=== PATIENT | male | born 1965 | race Caucasian/White ===

== ENCOUNTER → 2017-09-24 14:39 | Outpatient (CLI) | payer OTHER, SELFPAY ==
--- NOTE | 2017-09-24 | DI.CT.S_ITS ---
PROCEDURE: CT LUMBAR SPINE WO CON INDICATIONS: SPONDYLOLISTHESIS OF LUMBAR REGION TECHNIQUE: Noncontrast 3 mm thick sections acquired from the T12 level to the sacrum. Sagittal and coronal reformats were constructed. For radiation dose reduction, the following was used: automated exposure control. COMPARISON: [facility], CR, L-SPINE 2-3 VIEWS, 01/30/2017, 9:56. [facility], MR, L-SPINE WITHOUT CONTRAST, 03/19/2017, 18:40. FINDINGS: Image quality: Excellent. Bones: There is trace retrolisthesis of L4 on L5, Grade I/II anterolisthesis of L5 on S1. Subchrondral sclerosis is present at L5-S1. Bilateral pars defects are present at L5. No acute vertebral body compression fractures. No suspicious lytic or blastic bony lesions. There is severe disc space narrowing at L5-S1, moderate L2-3, L4-5. Inferior endplate deformity is present at T12, unchanged. Conus ends at T12-L1. L1-L2: No disc bulge, spinal stenosis or foraminal narrowing. L2-L3: Mild disc bulge with left lateral component. Mild right and moderate left foraminal narrowing, slightly progressive. Facet and ligamentum hypertrophy is present. L3-L4: Mild disc bulge with minimal spinal stenosis. Mild to moderate bilateral foraminal narrowing. Minimal interval progression with facet hypertrophy. L4-L5: Mild disc bulge with minimal spinal stenosis. Mild to moderate left and moderate right foraminal narrowing with facet and ligamentum flavum hypertrophy. No interval change. L5-S1: Mild disc bulge without spinal stenosis. There is severe bilateral foraminal narrowing, right greater than left with flattening of the nerve roots particularly within the subarticular recesses, right greater than left. Facet and ligamentum flavum hypertrophy are present. Soft tissues: No retroperitoneal masses or hematomas. Visualized aorta is normal in caliber. IMPRESSION: 1. Stable appearance of Grade I/II anterolisthesis of L5 on S1 with L5 pars defects. 2. Multilevel disc bulges. 3. Multilevel foraminal narrowing, severe at L5-S1 predominantly secondary to anterolisthesis. Dictated by: Yvonne Jones M.D. on 09/25/2017 at 10:29 Approved by: Yvonne Jones M.D. on 09/25/2017 at 11:04
== END ==
PROVIDERS: PCP Registered Nurse Diabetes Educator; Visit Provider Neurological Surgery
DX: M43.16 Spondylolisthesis, lumbar region (principal)
CPT/HCPCS: 72131

== ENCOUNTER 2017-10-23 06:09 | Emergency (ER) | payer OTHER, SELFPAY ==
[2017-10-23 06:19] VITALS: BP 139/97; PULSE 83; RESP 16; TEMP 36.3; O2SAT 98; BMI 28.7
--- NOTE | 2017-10-23 06:27 | ED_ITS ---
HPI - Male Genitourinary General Chief complaint: Urogenital-Male Stated complaint: BLOOD IN URINE Time Seen by Provider: 10/23/17 06:10 Source: patient Mode of arrival: ambulatory Limitations: no limitations History of Present Illness HPI Narrative: [age] year old otherwise healthy male who was a smoker here for evaluation of gross blood and clots in his urine this morning. He states that last evening he urinated did not have any problems he states that this morning when he woke up his 1st urine of the day was gross blood and clots. He states that the very end of the urination there was some urine that came out. States he did have some pain when he passed the clots states he does have some lower abdominal discomfort otherwise no other symptoms. No fevers. No trauma. Is circumcised. No history of urinary tract infections. Not on any anticoagulation. No history of kidney stones. Related Data Home Medications Medication Instructions Recorded Confirmed omeprazole 20 mg PO QDAY #0 01/30/17 lisinopril 10 mg PO QDAY #0 02/18/17 Previous Rx's Medication Instructions Recorded ibuprofen 800 mg PO TIDP PRN #90 tab 01/30/17 oxycodone-acetaminophen [Percocet] 1 tab PO Q4HP PRN #15 tab 01/30/17 prednisone 20 mg PO SEE INSTRUCTIONS #15 tab 01/30/17 ketorolac 10 mg PO Q6HP PRN #15 tab 02/18/17 Allergies Allergy/AdvReac Type Severity Reaction Status Date / Time bupropion [From ZYBAN] Allergy Severe ANAPHALAXIS Verified 10/23/17 06:24 Review of Systems Constitutional Denies fever(s) Cardiovascular Denies chest pain and Denies dyspnea Respiratory Denies dyspnea Gastrointestinal Gastrointestinal: Reports abdominal pain (?Slight ?lower abdominal pain), Denies diarrhea, Denies nausea and Denies vomiting Genitourinary Reports hematuria, Denies genital lesions, Denies dysuria and Denies testicular pain Musculoskeletal Denies myalgias and Denies arthralgias Integumentary/Breasts Denies lesions and Denies rash Hematologic/Lymphatic Denies easy bleeding and Denies easy bruising COUNT INCLUDES THE [facility] Medical History Hypertension (Acute) Surgical History No history of previous surgery (Acute) Social History Smoking Status: Current every day smoker Exam Initial Vital Signs Initial Vital Signs: Vital Signs Temperature 97.4 F L 10/23/17 06:19 Pulse Rate 83 18 06:19 Respiratory Rate 16 10/23/17 06:19 Blood Pressure 139/97 H 10/23/17 06:19 Pulse Oximetry 98 10/23/17 06:19 Const General: cooperative, healthy appearing, comfortable, well developed, well groomed and No acute distress Orientation: alert, awake and oriented x3 HENMT Head: normal to inspection and normocephalic Resp Effort & Inspection: normal respiratory effort Cardio Rate: regular rate GI Inspection: non-distended Back/Spine/Pelvis Back: No CVA tenderness Skin Rashes: no rashes Neuro General: alert, awake and oriented x3 Extrem General: normal to inspection Psych Appearance: grossly normal and well kempt Course Orders Ordered: ED Orders 10/23/17 06:28 Urine Microscopic Stat Vital Signs - 8 hr 10/23/17 06:19 Temperature 97.4 F L Pulse Rate 83 Respiratory Rate 16 Blood Pressure 139/97 H Pulse Oximetry 98 MDM - Male Genitourinary Lab Data Attestation: I reviewed the patient's lab results. Lab Results 10/23/17 Range/Units 06:28 Urine RBC 10-30/hpf H (0-5/HPF) Urine WBC None seen (0-5/HPF) Urine Bacteria None seen (None) Ur Culture Indicated? Cult not indicated Micro UA Comment Not Reportable MDM Narrative Medical decision making narrative: Patient asymptomatic here in the emergency department. Is not having any fevers. No history of sexually transmitted diseases. History is not consistent with kidney stone. No signs of infection. He is a smoker which is somewhat concerning for pathology such as bladder cancer however this is the 1st episode of hematuria that the patient has had. Informed him that he needed to increase his fluid intake. He was given return precautions. He was instructed he needs to contact his primary care doctor. He expressed understanding and agreement with plan. Discharge Plan Departure Patient Disposition: Home Clinical Impression: Hematuria Instructions: DI for Hematuria Activity Restrictions/Additional Instructions: Recommend that you increase your fluid intake. Contact your primary care doctor for a follow-up. Return to the emergency department for any new symptoms , worsening symptoms, fevers, inability to urinate, worsening pain, or any other concerning symptoms. Prescriptions: No Action omeprazole 20 MG tablet,delayed release (DR/EC) 20 mg PO QDAY Qty: 0 RF: 0 ibuprofen 800 MG tablet 800 mg PO TIDP PRNQty: 90 RF: 0 prednisone 20 MG tablet 20 mg PO SEE INSTRUCTIONS Qty: 15 RF: 0 oxycodone-acetaminophen [Percocet] 5 MG/325 MG tablet 1 tab PO Q4HP PRNQty: 15 RF: 0 lisinopril 10 MG tablet 10 mg PO QDAY Qty: 0 RF: 0 ketorolac 10 MG tablet 10 mg PO Q6HP PRNQty: 15 RF: 0
[2017-10-23 06:35] LABS: Bacteria Urine None Seen; WBC Urine None Seen (0-5/HPF)
[2017-10-23 06:54] LABS: Culture Indicated Urine Cult Not Indicated; RBC Urine 10-30/HPF (0-5/HPF)
[2017-10-23 07:05] VITALS: BP 138/93; PULSE 84; RESP 16; O2SAT 100
== END 2017-10-23 07:06 | disposition home or self-care (01) ==
PROVIDERS: Emergency Provider Emergency Medicine; PCP Registered Nurse Diabetes Educator
DX: R31.9 Hematuria, unspecified (principal)
CPT/HCPCS: 81003; 81015; 99282

== ENCOUNTER 2018-01-12 13:52 | Outpatient (CLI) | payer OTHER, SELFPAY ==
[2018-01-12] VITALS (8 sets, daily range): BP systolic 123–149; BP diastolic 77–96; PULSE 81–98; RESP 16–22; TEMP 36.4; O2SAT 96–100
--- NOTE | 2018-01-12 13:54 | DI.RAD.S_ITS ---
PROCEDURE: PAIN L INTERLAMINAR/CAUDAL INJ INDICATIONS: RADICULOPATHY FINDINGS: Fluoroscopic spot filming was performed to verify placement of spinal needles at the L5-S1 level(s), as labeled on the films. Appropriate location(s) of the needle tip(s) was confirmed by injection of iodinated contrast. IMPRESSION: Fluoroscopy for pain management. Dictated by: Rhean Ovalle M.D. on 01/12/2018 at 16:50 Approved by: Rehan Ovalle M.D. on 01/12/2018 at 16:50
[2018-01-12] MEDS: MIDAZOLAM 5 MG/5 ML VIAL IV (14:55)
[2018-01-12] MEDS: IOPAMIDOL 15 ML VIAL 3 ML INJ (15:10)
--- NOTE | 2018-01-12 15:10 | PC.NURSE ---
pt tolerated procedure and was able to get off table with minimal assist and into wheelchair. pt taken to pre procedure room for continued monitoring.
[2018-01-12] MEDS: DEXAMETHASONE 10 MG/ML VIAL 20 MG INJ (15:11)
[2018-01-12] MEDS: methylPREDNISolone acetate 80 MG/ML VIAL INJ (15:11)
[2018-01-12] MEDS: BUPIVACAINE 0.25% (PF) VIAL 2 ML INJ (15:11)
--- NOTE | 2018-01-12 15:16 | P.PCN_ITS ---
Procedures Date/Time Date of procedure: 01/12/18 Time of procedure: 15:14 General Procedure description: PROVIDER: Yared Ochoa DO Operative Note PREOP DIAGNOSIS 1. HNP WITH RADICULAR FEATURES, 2. MULTILEVEL CENTRAL STENOSIS, POST OP DIAGNOSIS 1. HNP WITH RADICULAR FEATURES, 2. MULTILEVEL CENTRAL STENOSIS, PROCEDURES 1. FLUORSCOPICALLY GUIDED CONTRAST CONTROLLED INTERLAMINAR EPIDURAL STEROID INJECTION - L5/S1 PHYSICIAN: Yared Ochoa DO INDICATIONS Tera is referred by Dr. Scanlon for treatment of Bilateral Foraminal Stenosis with Right LE symptoms. FINDINGS Multilevel Central Spinal Stenosis with Nerve Root Compression DESCRIPTION OF PROCEDURE Fluoroscopically guided, contrast-controlled L5/S1 translaminar epidural steroid injection. Following denial of allergy and review of potential side effects and complications, including, but not necessarily limited to, infection, allergic reaction, local tissue breakdown, temporary as well as permanent nerve injury, paralysis, stroke and possible , the patient indicated that the patient understood and agreed to proceed. An informed consent document was signed by the patient, witnessed by a nurse, and placed in the patient's chart. Additionally, other treatment options including modalities, medications, and physical therapy were reviewed with the patient. After review of previous anaesthesic history and IV conscious sedation the patient was deemed safe to proceed with todays procedure with IV conscious sedation as ASA class II designation. Safety time-out was performed to confirm patient ID, procedure to be performed and site of procedure. IV sedation was accomplished with a combination of 5mg of Versed administered by the RN after DO order, titrated to patient comfort during the course of the procedure while the patient remained responsive to all verbal commands. In the prone position, following sterile prep and drape of the lumbar region, the L5/S1 translaminar space was identified fluoroscopically. The skin was anesthetized via a 25-gauge, 1.5-inch needle with 1% lidocaine solution. At this point, a 22-gauge short bevel spinal needle was atraumatically introduced and advanced under fluoroscopic guidance into the region of the L5/S1 translaminar space. Depth was confirmed on lateral view. Radiological data, including multiple fluoroscopic views of the lumbar spine, reveal a spinal needle at the L5/S1 translaminar space. Lateral views then show placement of the needle in the epidural space. Subsequent views show contrast material flowing superiorly and inferiorly in the epidural space. No vascular or intrathecal uptake is observed. At this point, using loss of resistance technique with saline and air, the epidural space was entered. This was confirmed following negative aspiration with injection of approximately 1.5 cc of Isovue 200, showing excellent epidural flow without vascular or intrathecal uptake. At this point, 1 cc of 1 % lidocaine solution combined with 3 cc or 20 mg of dexamethasone and 80mg Depo medrol was injected without incident. The patent tolerated the procedure without signs of symptoms of complications prior to transfer to the recovery area for further monitoring. The patient was then transferred to the recovery area where they were observed for an appropriate period of time after the injection. The patient reported a VAS score of 6 prior to the procedure and a post-procedure VAS of 0. Total Fluoroscopy Time: 11.8 seconds Total Conscious Sedation Time: 24min POST OP INSTRUCTIONS The patient was provided a Pain Log to continue to record their response to the target-specific procedure prior to follow-up visit with their referring physician. Additionally, specific post-injection care instructions and a contact number to our office were provided if concerns arise regarding possible complications associated with the procedure are suspected. Yared Ochoa DO Complications: none
--- NOTE | 2018-01-12 15:21 | PC.NURSE ---
1527 ACCEPTED CARE OF PT FROM [facility] FOR POST PROCEDURE OBSERVATION. PT IN STABLE CONDITION.
--- NOTE | 2018-01-12 15:25 | PC.NURSE ---
REVISION TO MY EARLIER NOTE, TOOK OVER PT CARE AT 1517, NOT 1527
== END 2018-01-12 15:41 | disposition home or self-care (01) ==
LOC: RAD 13:53
PROVIDERS: PCP Registered Nurse Diabetes Educator; Visit Provider Physical Medicine & Rehabilitation
DX: M51.17 Intervertebral disc disorders with radiculopathy, lumbosacral region (principal); M48.07 Spinal stenosis, lumbosacral region; M48.061 Spinal stenosis, lumbar region without neurogenic claudication; M43.16 Spondylolisthesis, lumbar region; M47.26 Other spondylosis with radiculopathy, lumbar region
CPT/HCPCS: 62323; 99152; J1040; J1100; J2250

== ENCOUNTER → 2018-06-18 13:30 | Outpatient (CLI) | payer OTHER, SELFPAY ==
[2018-06-18 13:41] LABS: Bacteria Urine None Seen; RBC Urine None Seen (0-5/HPF); WBC Urine None Seen (0-5/HPF)
[2018-06-18 13:55] LABS: Appearance Urine UA CLEAR; Bilirubin Urine UA NEGATIVE (NEGATIVE); Color Urine UA YELLOW; Glucose Urine UA NEGATIVE (Negative); Ketones Urine UA TRACE (NEGATIVE); Leukocyte Esterase Urine UA NEGATIVE (NEGATIVE); Nitrite Urine UA NEGATIVE (Negative); Occult Blood Urine UA TRACE-INTACT (Negative); Protein Urine UA NEGATIVE (Negative); Urobilinogen Urine UA 0.2 E.U./dL (0.2)
[2018-06-18 14:03] LABS: Culture Indicated Urine Cult Not Indicated; Urine Comments Microscopic Normal
== END ==
PROVIDERS: PCP Registered Nurse Diabetes Educator; Visit Provider Urology
DX: R31.0 Gross hematuria (principal)
CPT/HCPCS: 81001

== ENCOUNTER 2018-07-07 13:58 | Outpatient (CLI) | payer OTHER, SELFPAY ==
[2018-07-07] VITALS (10 sets, daily range): BP systolic 113–143; BP diastolic 66–105; PULSE 78–90; RESP 16–18; TEMP 36.4; O2SAT 90–99
--- NOTE | 2018-07-07 13:59 | DI.RAD.S_ITS ---
PROCEDURE: PAIN L/S TRANSFORAMINAL INJECT INDICATIONS: RADICULOPATHY FINDINGS: Fluoroscopic spot filming was performed to verify placement of spinal needles at the L4-L5 level(s), as labeled on the films. Appropriate location(s) of the needle tip(s) was confirmed by injection of iodinated contrast. Dictated by: Keith Glynn M.D. on 07/07/2018 at 16:01 Approved by: Keith Glynn M.D. on 07/07/2018 at 16:02
[2018-07-07] MEDS: MIDAZOLAM 5 MG/5 ML VIAL IV (15:05)
[2018-07-07] MEDS: fentaNYL 100 MCG/2 ML INJ 50 MCG IV (15:10)
[2018-07-07] MEDS: IOPAMIDOL 15 ML VIAL 3 ML INJ (15:14)
[2018-07-07] MEDS: BUPIVACAINE 0.25% (PF) VIAL 2 ML INJ (15:14)
[2018-07-07] MEDS: DEXAMETHASONE 10 MG/ML VIAL 20 MG INJ (15:15)
[2018-07-07] MEDS: BETAMETHASONE 30 MG/5 ML MDV 6 MG INJ (15:16)
--- NOTE | 2018-07-07 15:21 | PC.NURSE ---
pt tolerated procedure well. Able to get off table with standby assist. Transferred pt via wheelchair to pre procedure room for continued monitoring with Evi JALLOH.
--- NOTE | 2018-07-07 15:33 | P.PCN_ITS ---
Procedures Date/Time Date of procedure: 07/07/18 Time of procedure: 15:32 General Procedure description: PREOP DIAGNOSIS 1. FORMAINAL STENOSIS WITH LE SYMPTOMS POST OP DIAGNOSIS 1. FORMAINAL STENOSIS WITH LE SYMPTOMS PROCEDURES 1. FLUOROSCOPICALLY GUIDED CONTRAST CONTROLLED TRANSFORAMINAL EPIDURAL STEROID INJECTION - RIGHT L4/5 TFESI PHYSICIAN: Yared Ochoa DO INDICATIONS: is referred by for treatment of Foraminal Stenosis with Right LE Symptoms FINDINGS Foraminal Nerve Root Compression secondary to disc disease and facet hypertrophy DESCRIPTION OF PROCEDURE: Following denial of allergy and review of potential side effects and complications, including, but not necessarily limited to, infection, allergic reaction, local tissue breakdown, stroke, temporary or permanent nerve injury, paralysis, and possible , the patient indicated that the patient understood and agreed to proceed. An informed consent document was signed by the patient, witnessed by a nurse, and placed in the patient's chart. Additionally, other treatment options including medications, modalities, and physical therapy were reviewed with the patient. After review of previous anaesthesic history and IV conscious sedation the patient was deemed safe to proceed with todays procedure with IV conscious sedation as ASA class II designation. Safety time-out was performed to confirm patient ID, procedure to be performed and site of procedure. IV sedation was accomplished with a combination of 3mg of Versed and 50mcg Fentanyl was administered by the RN after DO order, titrated to patient comfort during the course of the procedure while the patient remained responsive to all verbal commands In the prone position following sterile prep and drape of the lumbar region, the Right L4/5 posterior neuroforamen was identified fluoroscopically. The skin was anesthetized via a 25-gauge 1.5-inch needle with 1% lidocaine solution. At this point, a 25-gauge 3.5-inch spinal needle was atraumatically introduced and advanced under fluoroscopic guidance through the posterior Right L4/5 neuroforamen to approximately the anterior aspect of the canal. Depth was confirmed on lateral view. Following negative aspiration, injection of virgie roximately 1.5 cc of Isovue 200 under live fluoroscopy in the AP view confirmed excellent flow along the nerve root, into the epidural space without vascular or intrathecal uptake observed Radiological data, including multiple fluoroscopic views of the lumbosacral spine, reveal a spinal needle at the right L4/5 posterior neuroforamen. Subsequent views show flow of contrast material flowing superiorly and inferiorly along the nerve root confirming epidural flow. Subsequently, a test dose of 1.5 cc of 1% lidocaine solution was administered and patient was observed for two minutes for signs or symptoms of complications, including abdominal pain, shortness of breath, bilateral upper or lower extremity weakness, nausea and vomiting, prior to steroid injection. At this point, a total of 3cc including 20mg of dexamethasone and 6mg of betamethasone was injected without incident. The procedure tolerated the procedure well without signs or symptoms of complications prior to transfer to the recovery area continued monitoring without incident.The patient was then transferred to the recovery area where they were observed for an appropriate time after the injection. The patient reported a VAS score of 7 prior to the procedure and a post- procedure VAS of 0. Total Fluoroscopy Time: 20.9 seconds Total Conscious Sedation Time: 24min POST OP INSTRUCTIONS The patient was provided a Pain Log to continue to record their response to the target-specific procedure prior to follow-up visit with their referring physician. Additionally, specific post-injection care instructions and a contact number to our office were provided if concerns arise regarding possible complications associated with the procedure are suspected. Yared Ochoa, Complications: none
--- NOTE | 2018-07-07 16:05 | PC.NURSE ---
1527 rtr from procedure via w/c, transfer self to chair, back pain less at 5/10, making knees also better. tolerating drinking water.
== END 2018-07-07 15:50 ==
LOC: RAD 13:59
PROVIDERS: PCP Registered Nurse Diabetes Educator; Visit Provider Physical Medicine & Rehabilitation
DX: M48.061 Spinal stenosis, lumbar region without neurogenic claudication (principal); M51.16 Intervertebral disc disorders with radiculopathy, lumbar region; M43.16 Spondylolisthesis, lumbar region
CPT/HCPCS: 64483; 99152; J0702; J1100; J2250; J3010

== ENCOUNTER 2018-08-09 09:05 | Emergency (ER) | payer OTHER, SELFPAY ==
[2018-08-09 09:12] VITALS: BP 150/83; PULSE 69; RESP 16; TEMP 36.4; O2SAT 98
--- NOTE | 2018-08-09 10:04 | ED.MALEGU ---
HPI - Male Genitourinary General Chief complaint: Urogenital-Male Stated complaint: BLEEDING WHILTE URINATING Time Seen by Provider: 08/09/18 09:11 Source: patient Mode of arrival: ambulatory Limitations: no limitations History of Present Illness HPI Narrative: Patient comes emergency department after noting blood in his urine since yesterday. Patient has had this problem intermittently since January of last year, but states that this seems like more blood than before. Patient states that this morning, he was not able to urinate initially and then suddenly, blood red urine came out with clots. Patient has been evaluated by urology for this already, including a biopsy of a lesion which turned out to be benign, so he called his urologist's office and the nurse told him to come here. Patient states that he was feeling fine before calling the urology clinic, but that while on the phone with the nurse, he began to feel lightheaded. Patient states he has also had some blood mixed in with his stool over the last couple of days, and states this also was not new for him. He has seen a [employer] director for this, and has had an endoscopy and colonoscopy, with no significant findings other than 1 polyp that was removed, and an ulcer at the beginning portion of his small intestine. Patient states he has a small pain in his epigastrium. He states he has chronic back pain which is not worse than usual. Patient states he has had chronic dysuria ever since his biopsy. No fevers. No nausea or vomiting today, the patient did have a little bit of nausea couple of days ago. No other complaints at this time. Patient does note that he has previously been diagnosed with fatty liver, which was discovered on CT scan, but has no history of liver failure. He does not drink alcohol regularly. Patient denies history of kidney stones. Related Data Home Medications Medication Instructions Recorded Confirmed omeprazole 20 mg PO QDAY #0 01/30/17 lisinopril 10 mg PO QDAY #0 02/18/17 08/09/18 gabapentin 300 mg PO DAILY PRN 08/09/18 08/09/18 Previous Rx's Medication Instructions Recorded ibuprofen 800 mg PO TIDP PRN #90 tab 01/30/17 oxycodone-acetaminophen [Percocet] 1 tab PO Q4HP PRN #15 tab 01/30/17 prednisone 20 mg PO SEE INSTRUCTIONS #15 tab 01/30/17 ketorolac 10 mg PO Q6HP PRN #15 tab 02/18/17 sulfamethoxazole-trimethoprim 1 tab PO BID #14 tab 08/09/18 [Bactrim DS] Allergies Allergy/AdvReac Type Severity Reaction Status Date / Time bupropion [From ZYBAN] Allergy Severe ANAPHALAXIS Verified 08/09/18 09:22 Review of Systems Constitutional Denies chills, Denies fever(s), Denies lethargy and Denies weakness Eyes Denies change in vision, Denies eye discharge, Denies irritation and Denies loss of vision ENT Ears, Nose, Mouth, and Throat: Denies change in voice, Denies neck pain and Denies sore throat Cardiovascular Denies chest pain, Denies irregular heart rhythm, Reports lightheadedness, Denies palpitations, Denies dyspnea, Denies dyspnea on exertion and Denies orthopnea Respiratory Denies cough, Denies dyspnea, Denies dyspnea on exertion and Denies wheezing Gastrointestinal Gastrointestinal: Denies abdominal pain, Denies change in bowel habits, Denies diarrhea, Denies nausea and Denies vomiting Comments: Blood in stool Genitourinary Reports hematuria, Denies flank pain, Denies urinary incontinence and Denies urinary urgency Musculoskeletal Denies neck pain Integumentary/Breasts Denies pruritus, Denies erythema, Denies rash and Denies wounds Neurologic Denies confusion, Denies loss of vision and Denies weakness Psychiatric Denies anxiety, Denies confusion, Denies depression, Denies homicidal ideation and Denies suicidal ideation Endocrine Denies palpitations Hematologic/Lymphatic Denies easy bruising Allergic/Immunologic Denies wheezing [facility] Medical History GI bleed (Acute) Hematuria (Acute) Hypertension (Acute) Surgical History History of biopsy of bladder (Acute) No history of previous surgery (Acute) Social History Smoking Status: Current every day smoker Social History Smoking Status: Current every day smoker Exam Narrative Exam Narrative: Patient appears somewhat anxious, otherwise no apparent distress. Initial Vital Signs Initial Vital Signs: Vital Signs Temperature 97.6 F 08/09/18 09:12 Pulse Rate 69 08/09/18 09:12 Respiratory Rate 16 08/09/18 09:12 Blood Pressure 150/83 H 08/09/18 09:12 Pulse Oximetry 98 08/09/18 09:12 Const General: cooperative and well developed Nutritional Appearance: well nourished Orientation: alert, awake, oriented x3 and not confused HENHI Head: normocephalic and atraumatic Ears: external ears normal Nose: external nose normal and No nasal discharge Face and sinus: face symmetric and No dry mucous membranes Mouth: oral mucosae normal and moist mucous membranes Teeth and gingiva: dentition normal Eyes General: appearance normal, both eyes and all related structures Eyelids: eyelids normal Conjunctivae: conjunctivae normal Sclera: sclerae normal Pupils: PERRL EOM: EOM intact bilaterally Other: No icterus Neck Neck: normal visual inspection, trachea midline, No lymphadenopathy, No midline deformity and No JVD Lymphatic: No lymphedema Chest Chest: normal inspection of the chest Resp Effort & Inspection: normal respiratory effort, able to speak in complete sentences, no respiratory distress and no use of accessory muscles Auscultation: clear to auscultation bilaterally, no rales, no rhonchi and no wheezes Cardio Rate: regular rate Rhythm: regular rhythm Heart Sounds: no click, no gallops, no murmurs and no rubs Pulses: normal peripheral pulses GI Inspection: non-distended Palpation: soft, no hepatosplenomegaly, No guarding, No pulsatile mass and tender (Mild, point, midline epigastric area.) Auscultation: normal bowel sounds Back/Spine/Pelvis Back: No CVA tenderness Cervical Spine: cervical ROM normal and No pain with cervical ROM Thoracic/Lumbar Spine: thoracic and lumbar spine normal to inspection Skin General: no rashes or lesions noted, No jaundice and No petechiae Other: Good color. Neuro General: alert, oriented x3, gait normal and no focal motor deficits Speech: speech normal Extrem General: full ROM, no clubbing, cyanosis or edema, no pedal edema and no calf tenderness Psych Appearance: well kempt Mental Status: mental status grossly normal Attitude: cooperative Thought Content: normal and suicidality Judgment: judgment good Course Course Narrative: Patient was evaluated in the emergency department for his lightheadedness and hematuria. His labs were unremarkable. Urinalysis showed evidence of a mild UTI, for which patient was started on treatment. 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 At this point time, the pt's urologist does not feel that the patient needs to be seen in the office any sooner than his current September appointment, and that he should be reassured and sent home. I did pass this along to the patient and his . No emergent condition has been found today. We have discussed the usual indications for return. Orders Ordered: Discontinued Medications Sodium Chloride (Normal Saline 0.9%) 1,000 mls @ 1,000 mls/hr IV BOLUS ONE Stop: 08/09/18 10:19 Last Infusion: 08/09/18 12:24 Dose: 0 mls/hr Admin: 08/09/18 10:33 Dose: 1,000 mls/hr Trimethoprim/Sulfamethoxazole (Bactrim Ds) 1 tab PO NOW ONE Stop: 08/09/18 11:50 Last Admin: 08/09/18 12:25 Dose: 1 tab Vital Signs - 8 hr 08/09/18 09:12 Temperature 97.6 F Pulse Rate 69 Respiratory Rate 16 Blood Pressure 150/83 H Pulse Oximetry 98 MDM - Male Genitourinary Medical Records Attestation: I reviewed the patient's medical records. Lab Data Attestation: I reviewed the patient's lab results. Result diagrams: 08/09/18 10:04 08/09/18 10:04 Lab Results 08/09/18 08/09/18 08/09/18 Range/Units 09:18 10:04 10:04 WBC 8.6 (4.5-11.0) X10^3/uL RBC 5.19 (4.5-5.9) X10^6/uL Hgb 15.8 (13.5-17.5) g/dL Hct 45.9 (41-53) % MCV 88.5 (80-100) fL MCH 30.4 (26-34) PG MCHC 34.4 (30-36) % RDW 14.1 (11.6-14.8) % Plt Count 283 (150-400) X10^3/uL Neut % (Auto) 66.3 (50-75) % Lymph % (Auto) 23.4 L (25-40) % [place] % (Auto) 7.3 (3-14) % Eos % (Auto) 2.0 (2-4) % Baso % (Auto) 1.0 (0-2) % Neut # (Auto) 5700 (5287-8380) /uL Lymph # (Auto) 2000 (2939-5296) /uL [place] # (Auto) 600 (0-900) /uL Eos # (Auto) 200 (0-450) /uL Baso # (Auto) 100 (0-100) /uL PT 11.7 (10.1-12.7) SECONDS INR 1.0 (0.9-1.3) Sodium (137-145) mmol/L Potassium (3.4-5.1) mmol/L Chloride (98-107) mmol/L Carbon Dioxide (22-32) mmol/L BUN (9-20) mg/dL Creatinine (0.66-1.25) mg/dL Estimated GFR (>60) mL/min BUN/Creatinine Ratio (6-22) Glucose (70-100) mg/dL Calcium (8.4-10.2) mg/dL Total Bilirubin (0.2-1.3) mg/dL AST (17-59) IU/L ALT (21-72) IU/L Alkaline Phosphatase (38-126) U/L Total Protein (6.3-8.2) g/dL Albumin (3.5-5.0) g/dL Globulin (1.7-4.1) g/dL Albumin/Globulin Ratio (1.0-2.8) Urine Color Red Urine Appearance Cloudy Urine pH 6.5 (4.5-8.0) Ur Specific [place] 1.015 (1.000-1.035) Urine Protein Trace H (Negative) Urine Glucose (UA) Negative (Negative) g/dL Urine Ketones Negative (NEGATIVE) Urine Occult Blood 3+ H (Negative) Urine Nitrate Negative (Negative) Urine Bilirubin Negative (NEGATIVE) Urine Urobilinogen 0.2 (0.2) E.U./dL Ur Leukocyte Esterase Trace H (NEGATIVE) Urine RBC >100/hpf (0-5/HPF) Urine WBC 1-5/hpf (0-5/HPF) Ur Squamous Epith Cells 1-5 /hpf (0-5/HPF) Urine Bacteria Few (2-10) H (None) Ur Culture Indicated? Specimen cultured 08/09/18 Range/Units 10:04 WBC (4.5-11.0) X10^3/uL RBC (4.5-5.9) X10^6/uL Hgb (13.5-17.5) g/dL Hct (41-53) % MCV (80-100) fL MCH (26-34) PG MCHC (30-36) % RDW (11.6-14.8) % Plt Count (150-400) X10^3/uL Neut % (Auto) (50-75) % Lymph % (Auto) (25-40) % [place] % (Auto) (3-14) % Eos % (Auto) (2-4) % Baso % (Auto) (0-2) % Neut # (Auto) (6012-4720) /uL Lymph # (Auto) (9961-7772) /uL [place] # (Auto) (0-900) /uL Eos # (Auto) (0-450) /uL Baso # (Auto) (0-100) /uL PT (10.1-12.7) SECONDS INR (0.9-1.3) Sodium 138 (137-145) mmol/L Potassium 4.1 (3.4-5.1) mmol/L Chloride 105 (98-107) mmol/L Carbon Dioxide 23 (22-32) mmol/L BUN 11 (9-20) mg/dL Creatinine 0.80 (0.66-1.25) mg/dL Estimated GFR > 60.0 (>60) mL/min BUN/Creatinine Ratio 13.8 (6-22) Glucose 101 H (70-100) mg/dL Calcium 9.9 (8.4-10.2) mg/dL Total Bilirubin 0.8 (0.2-1.3) mg/dL AST 34 (17-59) IU/L ALT 40 (21-72) IU/L Alkaline Phosphatase 61 (38-126) U/L Total Protein 7.8 (6.3-8.2) g/dL Albumin 4.6 (3.5-5.0) g/dL Globulin 3.2 (1.7-4.1) g/dL Albumin/Globulin Ratio 1.4 (1.0-2.8) Urine Color Urine Appearance Urine pH (4.5-8.0) Ur Specific [place] (1.000-1.035) Urine Protein (Negative) Urine Glucose (UA) (Negative) g/dL Urine Ketones (NEGATIVE) Urine Occult Blood (Negative) Urine Nitrate (Negative) Urine Bilirubin (NEGATIVE) Urine Urobilinogen (0.2) E.U./dL Ur Leukocyte Esterase (NEGATIVE) Urine RBC (0-5/HPF) Urine WBC (0-5/HPF) Ur Squamous Epith Cells (0-5/HPF) Urine Bacteria (None) Ur Culture Indicated? Discharge Plan Departure Patient Disposition: Home Clinical Impression: GI bleed Qualifiers: GI bleed type/associated pathology: duodenal ulcer Qualified Code(s): K26.4 - Chronic or unspecified duodenal ulcer with hemorrhage Hematuria Qualifiers: Hematuria type: idiopathic Glomerular morphologic changes: unspecified whether glomerular morphologic changes present Qualified Code(s): N02.9 - Recurrent and persistent hematuria with unspecified morphologic changes Discharge Date/Time: 08/09/18 13:20 Interventions: ED Discharge Assessment Last Done: 08/09/18 13:17 Instructions: DI for Urinary Tract Infection (UTI), Gastrointestinal Bleeding Activity Restrictions/Additional Instructions: Your labs look great. Your urinalysis shows evidence of a urinary tract infection, which is most likely the reason you have more bleeding. We have discussed your case with Urology, who would like to still see you in September. Dr. Thomas thinks that your bleeding is coming from enlarged veins, due to your enlarged prostate. She feels you need a surgery to cut down the size of your prostate, but wants your biopsy site to heal better 1st before this is done. Cutting down the size of your prostate will most likely take the pressure off of your veins, and you will not be so prone to bleeding. Prescriptions: New sulfamethoxazole-trimethoprim [Bactrim DS] 800-160 mg tablet 1 tab PO BID Qty: 14 RF: 0 No Action omeprazole 20 MG tablet,delayed release (DR/EC) 20 mg PO QDAY Qty: 0 RF: 0 ibuprofen 800 MG tablet 800 mg PO TIDP PRNQty: 90 RF: 0 prednisone 20 MG tablet 20 mg PO SEE INSTRUCTIONS Qty: 15 RF: 0 oxycodone-acetaminophen [Percocet] 5 MG/325 MG tablet 1 tab PO Q4HP PRNQty: 15 RF: 0 lisinopril 10 MG tablet 10 mg PO QDAY Qty: 0 RF: 0 ketorolac 10 MG tablet 10 mg PO Q6HP PRNQty: 15 RF: 0 gabapentin 300 mg capsule 300 mg PO DAILY PRN (Reason: Pain (Scale Score 1-3)) RF: 0 Referrals: Howie Bustos, LISANDRO [Primary Care Provider] -
[2018-08-09 10:12] LABS: Add Manual Diff / Slide Review NO; Basophils Absolute Auto 100 /uL (0-100); Eosinophils Absolute Auto 200 /uL (0-450); Hematocrit 45.9 % (41-53); Hemoglobin 15.8 g/dL (13.5-17.5); Lymphocytes Absolute Auto 2000 /uL (1100-4500); Lymphocytes Percent Auto 23.4 % (25-40); Mean Corpuscular HGB Conc 34.4 % (30-36); Mean Corpuscular Hemoglobin 30.4 PG (26-34); Mean Corpuscular Volume 88.5 fL (80-100); Monocytes Absolute Auto 600 /uL (0-900); Monocytes Percent Auto 7.3 % (3-14); Neutrophils Absolute Auto 5700 /uL (1500-7000); Neutrophils Percent Auto 66.3 % (50-75); Platelet Count 283 X10^3/uL (150-400); Red Blood Cell Count 5.19 X10^6/uL (4.5-5.9); Red Cell Distribution Width 14.1 % (11.6-14.8); White Blood Cell Count 8.6 X10^3/uL (4.5-11.0)
--- NOTE | 2018-08-09 10:12 | ED_ITS ---
HPI - Male Genitourinary General Chief complaint: Urogenital-Male Stated complaint: BLEEDING WHILTE URINATING Time Seen by Provider: 08/09/18 09:11 Source: patient Mode of arrival: ambulatory Limitations: no limitations History of Present Illness HPI Narrative: Patient comes emergency department after noting blood in his urine since yesterday. Patient has had this problem intermittently since January of last year, but states that this seems like more blood than before. Patient states that this morning, he was not able to urinate initially and then suddenly, blood red urine came out with clots. Patient has been evaluated by urology for this already, including a biopsy of a lesion which turned out to be benign, so he called his urologist's office and the nurse told him to come here. Patient states that he was feeling fine before calling the urology clinic, but that while on the phone with the nurse, he began to feel lightheaded. Patient states he has also had some blood mixed in with his stool over the last couple of days, and states this also was not new for him. He has seen a manager outreach for this, and has had an endoscopy and colonoscopy, with no significant findings other than 1 polyp that was removed, and an ulcer at the beginning portion of his small intestine. Patient states he has a small pain in his epigastrium. He states he has chronic back pain which is not worse than us ual. Patient states he has had chronic dysuria ever since his biopsy. No fevers. No nausea or vomiting today, the patient did have a little bit of nausea couple of days ago. No other complaints at this time. Patient does note that he has previously been diagnosed with fatty liver, which was discovered on CT scan, but has no history of liver failure. He does not drink alcohol regularly. Patient denies history of kidney stones. Related Data Home Medications Medication Instructions Recorded Confirmed omeprazole 20 mg PO QDAY #0 01/30/17 lisinopril 10 mg PO QDAY #0 02/18/17 08/09/18 gabapentin 300 mg PO DAILY PRN 08/09/18 08/09/18 Previous Rx's Medication Instructions Recorded ibuprofen 800 mg PO TIDP PRN #90 tab 01/30/17 oxycodone-acetaminophen [Percocet] 1 tab PO Q4HP PRN #15 tab 01/30/17 prednisone 20 mg PO SEE INSTRUCTIONS #15 tab 01/30/17 ketorolac 10 mg PO Q6HP PRN #15 tab 02/18/17 sulfamethoxazole-trimethoprim 1 tab PO BID #14 tab 08/09/18 [Bactrim DS] Allergies Allergy/AdvReac Type Severity Reaction Status Date / Time bupropion [From ZYBAN] Allergy Severe ANAPHALAXIS Verified 08/09/18 09:22 Review of Systems Constitutional Denies chills, Denies fever(s), Denies lethargy and Denies weakness Eyes Denies change in vision, Denies eye discharge, Denies irritation and Denies loss of vision ENT Ears, Nose, Mouth, and Throat: Denies change in voice, Denies neck pain and Denies sore throat Cardiovascular Denies chest pain, Denies irregular heart rhythm, Reports lightheadedness, Denies palpitations, Denies dyspnea, Denies dyspnea on exertion and Denies orthopnea Respiratory Denies cough, Denies dyspnea, Denies dyspnea on exertion and Denies wheezing Gastrointestinal Gastrointestinal: Denies abdominal pain, Denies change in bowel habits, Denies diarrhea, Denies nausea and Denies vomiting Comments: Blood in stool Genitourinary Reports hematuria, Denies flank pain, Denies urinary incontinence and Denies urinary urgency Musculoskeletal Denies neck pain Integumentary/Breasts Denies pruritus, Denies erythema, Denies rash and Denies wounds Neurologic Denies confusion, Denies loss of vision and Denies weakness Psychiatric Denies anxiety, Denies confusion, Denies depression, Denies homicidal ideation and Denies suicidal ideation Endocrine Denies palpitations Hematologic/Lymphatic Denies easy bruising Allergic/Immunologic Denies wheezing [facility] Medical History GI bleed (Acute) Hematuria (Acute) Hypertension (Acute) Surgical History History of biopsy of bladder (Acute) No history of previous surgery (Acute) Social History Smoking Status: Current every day smoker Social History Smoking Status: Current every day smoker Exam Narrative Exam Narrative: Patient appears somewhat anxious, otherwise no apparent distress. Initial Vital Signs Initial Vital Signs: Vital Signs Temperature 97.6 F 08/09/18 09:12 Pulse Rate 69 08/09/18 09:12 Respiratory Rate 16 08/09/18 09:12 Blood Pressure 150/83 H 08/09/18 09:12 Pulse Oximetry 98 08/09/18 09:12 Const General: cooperative and well developed Nutritional Appearance: well nourished Orientation: alert, awake, oriented x3 and not confused [facility] Head: normocephalic and atraumatic Ears: external ears normal Nose: external nose normal and No nasal discharge Face and sinus: face symmetric and No dry mucous membranes Mouth: oral mucosae normal and moist mucous membranes Teeth and gingiva: dentition normal Eyes General: appearance normal, both eyes and all related structures Eyelids: eyelids normal Conjunctivae: conjunctivae normal Sclera: sclerae normal Pupils: PERRL EOM: EOM intact bilaterally Other: No icterus Neck Neck: normal visual inspection, trachea midline, No lymphadenopathy, No midline deformity and No JVD Lymphatic: No lymphedema Chest Chest: normal inspection of the chest Resp Effort & Inspection: normal respiratory effort, able to speak in complete sentences, no respiratory distress and no use of accessory muscles Auscultation: clear to auscultation bilaterally, no rales, no rhonchi and no wheezes Cardio Rate: regular rate Rhythm: regular rhythm Heart Sounds: no click, no gallops, no murmurs and no rubs Pulses: normal peripheral pulses GI Inspection: non-distended Palpation: soft, no hepatosplenomegaly, No guarding, No pulsatile mass and tender (Mild, point, midline epigastric area.) Auscultation: normal bowel sounds Back/Spine/Pelvis Back: No CVA tenderness Cervical Spine: cervical ROM normal and No pain with cervical ROM Thoracic/Lumbar Spine: thoracic and lumbar spine normal to inspection Skin General: no rashes or lesions noted, No jaundice and No petechiae Other: Good color. Neuro General: alert, oriented x3, gait normal and no focal motor deficits Speech: speech normal Extrem General: full ROM, no clubbing, cyanosis or edema, no pedal edema and no calf tenderness Psych Appearance: well kempt Mental Status: mental status grossly normal Attitude: cooperative Thought Content: normal and suicidality Judgment: judgment good Course Course Narrative: Patient was evaluated in the emergency department for his lightheadedness and hematuria. His labs were unremarkable. Urinalysis showed evidence of a mild UTI, for which patient was started on treatment. 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 At this point time, the pt's urologist does not feel that the patient needs to be seen in the office any sooner than his current September appointment, and that he should be reassured and sent home. I did pass this along to the patient and his . No emergent condition has been found today. We have discussed the usual indications for return. Orders Ordered: Discontinued Medications Sodium Chloride (Normal Saline 0.9%) 1,000 mls @ 1,000 mls/hr IV BOLUS ONE Stop: 08/09/18 10:19 Last Infusion: 08/09/18 12:24 Dose: 0 mls/hr Admin: 08/09/18 10:33 Dose: 1,000 mls/hr Trimethoprim/Sulfamethoxazole (Bactrim Ds) 1 tab PO NOW ONE Stop: 08/09/18 11:50 Last Admin: 08/09/18 12:25 Dose: 1 tab Vital Signs - 8 hr 08/09/18 09:12 Temperature 97.6 F Pulse Rate 69 Respiratory Rate 16 Blood Pressure 150/83 H Pulse Oximetry 98 MDM - Male Genitourinary Medical Records Attestation: I reviewed the patient's medical records. Lab Data Attestation: I reviewed the patient's lab results. Result diagrams: 08/09/18 10:04 08/09/18 10:04 Lab Results 08/09/18 08/09/18 08/09/18 Range/Units 09:18 10:04 10:04 WBC 8.6 (4.5-11.0) X10^3/uL RBC 5.19 (4.5-5.9) X10^6/uL Hgb 15.8 (13.5-17.5) g/dL Hct 45.9 (41-53) % MCV 88.5 (80-100) fL MCH 30.4 (26-34) PG MCHC 34.4 (30-36) % RDW 14.1 (11.6-14.8) % Plt Count 283 (150-400) X10^3/uL Neut % (Auto) 66.3 (50-75) % Lymph % (Auto) 23.4 L (25-40) % [place] % (Auto) 7.3 (3-14) % Eos % (Auto) 2.0 (2-4) % Baso % (Auto) 1.0 (0-2) % Neut # (Auto) 5700 (3022-9277) /uL Lymph # (Auto) 2000 (1339-5648) /uL [place] # (Auto) 600 (0-900) /uL Eos # (Auto) 200 (0-450) /uL Baso # (Auto) 100 (0-100) /uL PT 11.7 (10.1-12.7) SECONDS INR 1.0 (0.9-1.3) Sodium (137-145) mmol/L Potassium (3.4-5.1) mmol/L Chloride (98-107) mmol/L Carbon Dioxide (22-32) mmol/L BUN (9-20) mg/dL Creatinine (0.66-1.25) mg/dL Estimated GFR (>60) mL/min BUN/Creatinine Ratio (6-22) Glucose (70-100) mg/dL Calcium (8.4-10.2) mg/dL Total Bilirubin (0.2-1.3) mg/dL AST (17-59) IU/L ALT (21-72) IU/L Alkaline Phosphatase (38-126) U/L Total Protein (6.3-8.2) g/dL Albumin (3.5-5.0) g/dL Globulin (1.7-4.1) g/dL Albumin/Globulin Ratio (1.0-2.8) Urine Color Red Urine Appearance Cloudy Urine pH 6.5 (4.5-8.0) Ur Specific [place] 1.015 (1.000-1.035) Urine Protein Trace H (Negative) Urine Glucose (UA) Negative (Negative) g/dL Urine Ketones Negative (NEGATIVE) Urine Occult Blood 3+ H (Negative) Urine Nitrate Negative (Negative) Urine Bilirubin Negative (NEGATIVE) Urine Urobilinogen 0.2 (0.2) E.U./dL Ur Leukocyte Esterase Trace H (NEGATIVE) Urine RBC >100/hpf (0-5/HPF) Urine WBC 1-5/hpf (0-5/HPF) Ur Squamous Epith Cells 1-5 /hpf (0-5/HPF) Urine Bacteria Few (2-10) H (None) Ur Culture Indicated? Specimen cultured 08/09/18 Range/Units 10:04 WBC (4.5-11.0) X10^3/uL RBC (4.5-5.9) X10^6/uL Hgb (13.5-17.5) g/dL Hct (41-53) % MCV (80-100) fL MCH (26-34) PG MCHC (30-36) % RDW (11.6-14.8) % Plt Count (150-400) X10^3/uL Neut % (Auto) (50-75) % Lymph % (Auto) (25-40) % [place] % (Auto) (3-14) % Eos % (Auto) (2-4) % Baso % (Auto) (0-2) % Neut # (Auto) (1648-3955) /uL Lymph # (Auto) (6817-6551) /uL [place] # (Auto) (0-900) /uL Eos # (Auto) (0-450) /uL Baso # (Auto) (0-100) /uL PT (10.1-12.7) SECONDS INR (0.9-1.3) Sodium 138 (137-145) mmol/L Potassium 4.1 (3.4-5.1) mmol/L Chloride 105 (98-107) mmol/L Carbon Dioxide 23 (22-32) mmol/L BUN 11 (9-20) mg/dL Creatinine 0.80 (0.66-1.25) mg/dL Estimated GFR > 60.0 (>60) mL/min BUN/Creatinine Ratio 13.8 (6-22) Glucose 101 H (70-100) mg/dL Calcium 9.9 (8.4-10.2) mg/dL Total Bilirubin 0.8 (0.2-1.3) mg/dL AST 34 (17-59) IU/L ALT 40 (21-72) IU/L Alkaline Phosphatase 61 (38-126) U/L Total Protein 7.8 (6.3-8.2) g/dL Albumin 4.6 (3.5-5.0) g/dL Globulin 3.2 (1.7-4.1) g/dL Albumin/Globulin Ratio 1.4 (1.0-2.8) Urine Color Urine Appearance Urine pH (4.5-8.0) Ur Specific [place] (1.000-1.035) Urine Protein (Negative) Urine Glucose (UA) (Negative) g/dL Urine Ketones (NEGATIVE) Urine Occult Blood (Negative) Urine Nitrate (Negative) Urine Bilirubin (NEGATIVE) Urine Urobilinogen (0.2) E.U./dL Ur Leukocyte Esterase (NEGATIVE) Urine RBC (0-5/HPF) Urine WBC (0-5/HPF) Ur Squamous Epith Cells (0-5/HPF) Urine Bacteria (None) Ur Culture Indicated? Discharge Plan Departure Patient Disposition: Home Clinical Impression: GI bleed Qualifiers: GI bleed type/associated pathology: duodenal ulcer Qualified Code(s): K26.4 - Chronic or unspecified duodenal ulcer with hemorrhage Hematuria Qualifiers: Hematuria type: idiopathic Glomerular morphologic changes: unspecified whether glomerular morphologic changes present Qualified Code(s): N02.9 - Recurrent and persistent hematuria with unspecified morphologic changes Discharge Date/Time: 08/09/18 13:20 Interventions: ED Discharge Assessment Last Done: 08/09/18 13:17 Instructions: DI for Urinary Tract Infection (UTI), Gastrointestinal Bleeding Activity Restrictions/Additional Instructions: Your labs look great. Your urinalysis shows evidence of a urinary tract infection, which is most likely the reason you have more bleeding. We have discussed your case with Urology, who would like to still see you in September. Dr. Thomas thinks that your bleeding is coming from enlarged veins, due to your enlarged prostate. She feels you need a surgery to cut down the size of your prostate, but wants your biopsy site to heal better 1st before this is done. Cutting down the size of your prostate will most likely take the pressure off of your veins, and you will not be so prone to bleeding. Prescriptions: New sulfamethoxazole-trimethoprim [Bactrim DS] 800-160 mg tablet 1 tab PO BID Qty: 14 RF: 0 No Action omeprazole 20 MG tablet,delayed release (DR/EC) 20 mg PO QDAY Qty: 0 RF: 0 ibuprofen 800 MG tablet 800 mg PO TIDP PRNQty: 90 RF: 0 prednisone 20 MG tablet 20 mg PO SEE INSTRUCTIONS Qty: 15 RF: 0 oxycodone-acetaminophen [Percocet] 5 MG/325 MG tablet 1 tab PO Q4HP PRNQty: 15 RF: 0 lisinopril 10 MG tablet 10 mg PO QDAY Qty: 0 RF: 0 ketorolac 10 MG tablet 10 mg PO Q6HP PRNQty: 15 RF: 0 gabapentin 300 mg capsule 300 mg PO DAILY PRN (Reason: Pain (Scale Score 1-3)) RF: 0 Referrals: Howie Bustos CNP [Primary Care Provider] -
[2018-08-09 10:17] LABS: Prothrombin Time 11.7 SECONDS (10.1-12.7)
--- NOTE | 2018-08-09 10:19 | RT ---
EKG performed at 1009, results to Dr. Weinstein
[2018-08-09 10:22] LABS: Alanine Aminotransferase 40 IU/L (21-72); Albumin 4.6 g/dL (3.5-5.0); Albumin Globulin Ratio 1.4 (1.0-2.8); Alkaline Phosphatase 61 U/L (38-126); Aspartate Aminotransferase 34 IU/L (17-59); BUN Creatinine Ratio 13.8 (6-22); Bilirubin Total 0.8 mg/dL (0.2-1.3); Blood Urea Nitrogen 11 mg/dL (9-20); Calcium 9.9 mg/dL (8.4-10.2); Carbon Dioxide 23 mmol/L (22-32); Chloride 105 mmol/L (98-107); Estimated Glomerular Filt Rate > 60.0 mL/min (>60); Globulin 3.2 g/dL (1.7-4.1); Glucose 101 mg/dL (70-100); HEMOLYSIS < 15 (0-50); Potassium 4.1 mmol/L (3.4-5.1); Sodium 138 mmol/L (137-145); Total Protein 7.8 g/dL (6.3-8.2)
[2018-08-09 10:32] VITALS: BP 126/95; PULSE 69; RESP 16; O2SAT 99
[2018-08-09] MEDS: SODIUM CHLORIDE 0.9% 1,000 ML 1000 ML IV (10:33)
[2018-08-09 10:50] LABS: Appearance Urine UA CLOUDY; Bilirubin Urine UA NEGATIVE (NEGATIVE); Color Urine UA RED; Glucose Urine UA NEGATIVE (Negative); Ketones Urine UA NEGATIVE (NEGATIVE); Leukocyte Esterase Urine UA TRACE (NEGATIVE); Nitrite Urine UA NEGATIVE (Negative); Occult Blood Urine UA 3+ (Negative); Protein Urine UA TRACE (Negative); Specific Gravity Urine UA 1.015 (1.000-1.035); Urobilinogen Urine UA 0.2 E.U./dL (0.2); pH Urine UA 6.5 (4.5-8.0)
[2018-08-09 11:10] LABS: RBC Urine >100/HPF (0-5/HPF)
[2018-08-09 11:11] LABS: Bacteria Urine Few (2-10); Culture Indicated Urine Specimen Cultured; Squamous Epithelial Cell Urine 1-5 /HPF (0-5/HPF); WBC Urine 1-5/HPF (0-5/HPF)
[2018-08-09 11:56] VITALS: BP 132/76; PULSE 77; RESP 17; O2SAT 99
[2018-08-09] MEDS: TRIMETH/SULFA 160/800 (DS) TABLET 1 TAB PO (12:25)
[2018-08-09 13:17] VITALS: BP 141/96; PULSE 66; RESP 14; O2SAT 100
== END 2018-08-09 13:20 | disposition home or self-care (01) ==
PROVIDERS: Emergency Provider Emergency Medicine; PCP Registered Nurse Diabetes Educator
DX: K26.4 Chronic or unspecified duodenal ulcer with hemorrhage (principal); N02.9 Recurrent and persistent hematuria with unspecified morphologic changes; R42 Dizziness and giddiness; R10.13 Epigastric pain; R03.0 Elevated blood-pressure reading, without diagnosis of hypertension
CPT/HCPCS: 36591; 80053; 81001; 85025; 85610; 87077; 87086; 87147; 93005; 96360; 96361; 99283

== ENCOUNTER → 2018-09-02 14:06 | Outpatient (CLI) | payer OTHER, SELFPAY ==
--- NOTE | 2018-09-02 14:08 | DI.MRI.S_ITS ---
PROCEDURE: MR LUMBAR SPINE WO CON INDICATIONS: Low back pain. Right knee numbness TECHNIQUE: Noncontrast sagittal T1 spin echo and T2 fast echo, sagittal STIR, axial T1 and T2 fast spin echo through the lumbar spine. In cases with scoliosis, additional coronal T2 fast spin echo may be performed. COMPARISON: [facility], CR, L-SPINE 2-3 VIEWS, 01/30/2017, 9:56. [facility], MR, L-SPINE WITHOUT CONTRAST, 03/19/2017, 18:40. [facility], CT, CT LUMBAR SPINE WO CON, 09/24/2017, 14:43. FINDINGS: Image quality: Excellent. Alignment and Curvature: There is grade 2 anterolisthesis of L5 on S1 secondary to bilateral pars defect. Bone Marrow: A large Schmorl's node is noted in the inferior endplate of T12. Degenerative endplate signal changes are present at L2, L3-L5 and S1. No acute vertebral body compression fractures. Spinal Cord: Conus medullaris terminates at the t12-L1 level. Visualized cord demonstrates normal signal and size. Paraspinous Soft Tissues: No paravertebral masses. T12-L1: Moderate to severe loss of disc height and disc desiccation. There is diffuse posterior disc bulge and disc osteophyte complex. The central canal is mildly narrowed. Moderate left foraminal stenosis. No right femoral stenosis. No definitive nerve root impingement. No significant change from the last exam. L1-L2: Normal appearance. L2-L3: Mild loss of disc height and disc desiccation. There is diffuse posterior disc bulge and disc osteophyte complex. The central canal is mildly narrowed. Moderate left and mild right foraminal stenosis. No definitive nerve root impingement. No significant change from the last exam. L3-L4: Preserved disc height. There is mild disc desiccation. There is mild diffuse posterior disc bulge and small posterior central annular fissure. The central canal is mildly narrowed. No foraminal stenosis. No nerve root impingement. No significant change from the last exam. L4-L5: Mild loss of disc height. There is moderate disc desiccation. There is mild diffuse posterior disc bulge. The central canal is patent. Mild bilateral foraminal stenosis. No definitive nerve root impingement. No significant change from the last exam. L5-S1: Severe loss of disc height and disc desiccation. There is diffuse posterior disc bulge. Mild bilateral facet arthropathy. The central canal is patent. Moderate narrowing of the lateral recess bilaterally. No definitive foraminal stenosis. Possible bilateral nerve root impingement. No significant change from the last exam. IMPRESSION: 1. Multilevel degenerative disc disease and facet arthropathy as described. 2. Mild central canal stenosis at T12-L1, L2-L3 and L3-L4. 3. Multilevel foraminal stenosis as described. 4. Moderate narrowing of the lateral recess bilaterally at L5-S1. 5. Grade 2 anterolisthesis of L5 on S1 secondary to pars defects. 6. Overall, there is no significant change from the last exam. Dictated by: Rehan Ovalle M.D. on 09/02/2018 at 16:16 Approved by: Rehan Ovalle M.D. on 09/03/2018 at 9:29
== END ==
PROVIDERS: PCP Registered Nurse Diabetes Educator; Visit Provider Neurological Surgery
DX: M54.5 Low back pain (principal); R20.0 Anesthesia of skin; M51.16 Intervertebral disc disorders with radiculopathy, lumbar region; M51.17 Intervertebral disc disorders with radiculopathy, lumbosacral region; M48.05 Spinal stenosis, thoracolumbar region; M48.061 Spinal stenosis, lumbar region without neurogenic claudication; M48.07 Spinal stenosis, lumbosacral region; M43.17 Spondylolisthesis, lumbosacral region; M51.44 Schmorl's nodes, thoracic region
CPT/HCPCS: 72148

== ENCOUNTER 2018-10-21 11:50 | Outpatient (CLI) | payer OTHER, SELFPAY ==
[2018-10-21] VITALS (8 sets, daily range): BP systolic 116–143; BP diastolic 55–94; PULSE 71–84; RESP 16–20; TEMP 36.1; O2SAT 96–98
--- NOTE | 2018-10-21 11:52 | DI.RAD.S_ITS ---
PROCEDURE: PAIN L/SI FACET INJ/BLK 1STL INDICATIONS: SPONDYLOSIS FINDINGS: Fluoroscopic spot filming was performed to verify placement of spinal needles at the L4-L5, L5-S1 level(s), as labeled on the films. Appropriate location(s) of the needle tip(s) was confirmed by injection of iodinated contrast. Dictated by: Keith Glynn M.D. on 10/21/2018 at 15:31 Approved by: Keith Glynn M.D. on 10/21/2018 at 15:33
[2018-10-21] MEDS: fentaNYL 100 MCG/2 ML INJ 50 MCG IV (13:10)
[2018-10-21] MEDS: MIDAZOLAM 5 MG/5 ML VIAL IV (13:10)
[2018-10-21] MEDS: BUPIVACAINE 0.5% (PF) VIAL 2 ML INJ (13:20)
[2018-10-21] MEDS: LIDOCAINE 1% 20 ML INJ 5 ML INJ (13:20)
[2018-10-21] MEDS: BETAMETHASONE 30 MG/5 ML MDV 12 MG INJ (13:21)
[2018-10-21] MEDS: IOPAMIDOL 15 ML VIAL 3 ML INJ (13:21)
--- NOTE | 2018-10-21 13:23 | PC.NURSE ---
pt tolerated procedure well. Able to get off table without difficulty, 2 person standby assist. Transferred pt via wheelchair to pre procedure room for continued monitoring with Anju JALLOH.
--- NOTE | 2018-10-21 13:29 | P.PCN_ITS ---
Procedures Date/Time Date of procedure: 10/21/18 Time of procedure: 13:27 General Procedure description: PREOP DIAGNOSIS 1. FACET ARTHROPATHY, 2. AXIAL LBP, 3. MULTILEVEL DDD, POST OP DIAGNOSIS 1. FACET ARTHROPATHY, 2. AXIAL LBP, 3. MULTILEVEL DDD, PROCEDURES 1. FLUORSCOPICALLY GUIDED CONTRAST CONTROLLED FACET JOINT INJECTIONS RIGHT L4/5, L5/S1 SURGEON: Yared Ochoa, INDICATIONS Tera is referred by LISANDRO Bustos for treatment of Axial LBP FINDINGS Multilevel Facet Arthropathy with Clinically significant axial LBP DESCRIPTION OF PROCEDURE Fluoroscopically guided, contrast-controlled right L4/5, L5/S1 facet joint i njections. Following review of allergy and review of potential side effects and complications, including, but not necessarily limited to, infection, allergic reaction, local tissue breakdown, stroke, temporary or permanent nerve injury, paralysis, and possible , the patient indicated that the patient understood and agreed to proceed. An informed consent document was signed by the patient, witnessed by a nurse, and placed in the patient's chart. Additionally, other treatment options including medications, modalities, and physical therapy were reviewed with the patient. After review of previous anaesthesic history and IV conscious sedation the patient was deemed safe to proceed with todays procedure with IV conscious sedation as ASA class II designation. Safety time-out was performed to confirm patient ID, procedure to be performed and site of procedure. IV sedation was accomplished with a combination of 3mg of Versed and 50 mcg Fentanyl was administered by the RN after DO order, titrated to patient comfort during the course of the procedure while the patient remained responsive to all verbal commands. In the prone position, following sterile prep and drape of the lumbar region, the posterior aspect of the right L4/5, L5/S1 facet joints were identified fluoroscopically. The skin was anesthetized via a 25-gauge 1.5-inch needle with 1% lidocaine solution into the corresponding facet joints. At this point, a 22- gauge 3.5-inch spinal needle was atraumatically introduced and advanced under fluoroscopic guidance into the corresponding facet joints. Following negative aspiration, injections of approximately 0.2-cc of Isovue 200 confirmed interarticular placement without vascular uptake. Radiological data, including multiple fluoroscopic views of the lumbosacral spine, reveal a spinal needle at the right L4/5, L5/S1 facet joints. Subsequent views show flow of contrast material both superiorly and inferiorly within the joint space without vascular or intrathecal uptake. At this point, a total of 0.5 cc including a mixture of 0.25cc Marcaine and 0.25cc betamethasone was injected without complication into each of the corresponding facet joints. The procedure tolerated the procedure well without signs or symptoms of complications prior to transfer to the recovery area continued monitoring without incident. The patient was then transferred to the recovery area where they were observed for an appropriate period of time after the injection. The patient reported a VAS score of 7 prior to the procedure and a post-procedure VAS of 0. Total Fluoroscopy Time: 12.7 seconds Total Conscious Sedation Time: 24min POST OP INSTRUCTIONS The patient was provided a Pain Log to continue to record their response to the target-specific procedure prior to follow-up visit with their referring physician. Additionally, specific post-injection care instructions and a contact number to our office were provided if concerns arise regarding possible compl ications associated with the procedure are suspected. Yared Ochoa, Complications: none
--- NOTE | 2018-10-21 13:31 | PC.NURSE ---
UPON ARRIVAL OF PT IN POST PROC RM, TOOK OVER CARE. PT IN STABLE CONDITION
== END 2018-10-21 14:00 | disposition home or self-care (01) ==
LOC: RAD 11:51
PROVIDERS: PCP Registered Nurse Diabetes Educator; Visit Provider Physical Medicine & Rehabilitation
DX: M47.817 Spondylosis without myelopathy or radiculopathy, lumbosacral region (principal); M43.17 Spondylolisthesis, lumbosacral region
CPT/HCPCS: 64493; 64494; 99152; J0702; J2250; J3010

== ENCOUNTER → 2018-11-22 14:41 | Outpatient (CLI) | payer OTHER, SELFPAY ==
--- NOTE | 2018-11-22 14:43 | DI.RAD.S_ITS ---
PROCEDURE: XR KNEE RT 3V INDICATIONS: Right knee DJD TECHNIQUE: 3 views of the knee were acquired. COMPARISON: None. FINDINGS: Bones: No fractures or dislocations. No suspicious bony lesions. Soft tissues: No joint effusion. No suspicious soft tissue calcifications. IMPRESSION: Right knee without acute osseous abnormalities or malalignment. No significant joint space loss identified. Dictated by: Henry Pemberton M.D. on 11/22/2018 at 14:45 Approved by: Henry Pemberton M.D. on 11/22/2018 at 14:46
== END ==
PROVIDERS: PCP Registered Nurse Diabetes Educator; Visit Provider Physical Medicine & Rehabilitation
DX: M25.561 Pain in right knee (principal)
CPT/HCPCS: 73562